=== PATIENT | male | born 1945 | race Two or more races ===

== ENCOUNTER 2024-07-29 06:28 | Day surgery (SDC) | payer OTHER ==
[2024-07-29] MEDS ORDERED: GLUCAGON 1 MG VIAL IV ONE (13:00)
[2024-07-29] MEDS ORDERED: IOVERSOL 320 MG/ML - 50 ML VIAL IV ONE (13:00)
[2024-07-29] MEDS ORDERED: ENALAPRILAT DIHYDRATE 1.25 MG/ML VIAL IV ONE ×2 (13:25→13:55)
== END 2024-07-29 15:15 | disposition home or self-care (01) ==
LOC: AMB-ERCP 06:28
PROVIDERS: ATTEND Internal Medicine Gastroenterology
DX: K83.1 Obstruction of bile duct (principal); I10 Essential (primary) hypertension; M19.90 Unspecified osteoarthritis, unspecified site; K76.0 Fatty (change of) liver, not elsewhere classified; G62.9 Polyneuropathy, unspecified; H52.4 Presbyopia